=== PATIENT | female | born 1930 | race Caucasian/White ===

== ENCOUNTER 2020-03-02 14:34 | Emergency (ER) | payer MEDICARE, MEDICAID ==
[~2020-03-02] VITALS: Ht 162.6 cm; Wt 100.0 kg
[2020-03-02 15:37] LABS: CHLORIDE 100 mEq/L (98-107)
[2020-03-02 15:39] LABS: HEMATOCRIT. 37.9 % (36.0-48.0); HEMOGLOBIN. 12.4 g/dL (12.0-16.0); MEAN CORPUSCULAR HEMOGLOBIN 29.2 pg (28.0-32.0); MEAN CORPUSCULAR VOLUME 89.4 fL (81.0-99.0); MEAN PLATELET VOLUME 9.5 fl (7.4-10.4); PLATELET 166 x1000/uL (130-400); RED BLOOD CELL COUNT 4.24 mill/uL (4.2-5.4); RED CELL DISTRIBUTION WIDTH 14.8 % (11.6-14.6)
[2020-03-02] MEDS ORDERED: PIPERACILLIN/TAZOBACTAM 3.375GM/50ML PREMIX IV ONE (16:00)
[2020-03-02] MEDS ORDERED: FUROSEMIDE 100MG/10ML VIAL IV NR (16:04)
[2020-03-02] MEDS ORDERED: CALCIUM GLUCONATE 100MG/ML 10ML VIAL IV NR (16:15)
[2020-03-02] MEDS ORDERED: INSULIN REGULAR (DRIP) 100 UNITS in SODIUM CHLORIDE 0.9% 99 ML IV NR (16:15)
[2020-03-02] MEDS ORDERED: PIPERACILLIN/TAZ 3.375G PREMIX 50 ML IV NR (16:15)
[2020-03-02 16:19] LABS: PLATELET ESTIMATE NORMAL
[2020-03-02 16:32] LABS: BG BASE EXCESS -8.4 mmol/L (-2.0-2.0); BG DEOXYHEMOGLOBIN 13.5 % (0.0-5.0); BG HCO3 ACT 15.7 mmol/L (22.0-26.0); BG METHEMOGLOBIN 0.1 % (0.0-1.5); BG OXYGEN SATURATION 86.5 % (92.0-98.5); BG OXYHEMOGLOBIN 86.4 % (94.0-97.0); BG PCO2 28.8 mmHg (35.0-45.0); BG PH 7.355 (7.350-7.450); BG SAMPLE SITE RIGHT BRACHIAL; BG TOTAL HEMOGLOBIN 12.8 g/dL (12.0-18.0); BG VENT MODE NASAL CANNULA
[2020-03-02] MEDS ORDERED: SODIUM CHLORIDE 0.9% 1,000 ML IV SCH (18:34)
[2020-03-02] MEDS ORDERED: ONDANSETRON HCL 4MG/2ML INJ IV PRN (18:45)
[2020-03-02] MEDS ORDERED: DIPHENHYDRAMINE 50MG/ML VIAL IV PRN (18:45)
[2020-03-02] MEDS ORDERED: ACETAMINOPHEN 325MG TABLET PO PRN (18:45)
[2020-03-02] MEDS ORDERED: CLONIDINE 0.1MG TABLET PO PRN (18:45)
[2020-03-02] MEDS ORDERED: IPRATROPIUM/ALBUTEROL 0.5-3(2.5)MG/3ML NEB HHN PRN (18:45)
[2020-03-02 19:31] LABS: PHOSPHORUS 5.5 mg/dL (2.5-4.9)
[2020-03-02] MEDS ORDERED: ENOXAPARIN 40MG/0.4ML SYR SUBCUT SCH (20:00)
[2020-03-03 04:15] LABS: HEMATOCRIT. 37.3 % (36.0-48.0); HEMOGLOBIN. 12.3 g/dL (12.0-16.0); MEAN CORPUSCULAR HEMOGLOBIN 28.9 pg (28.0-32.0); MEAN CORPUSCULAR VOLUME 87.9 fL (81.0-99.0); MEAN PLATELET VOLUME 9.2 fl (7.4-10.4); PLATELET 107 x1000/uL (130-400); RED BLOOD CELL COUNT 4.25 mill/uL (4.2-5.4); RED CELL DISTRIBUTION WIDTH 14.6 % (11.6-14.6)
[2020-03-03] MEDS ORDERED: INSULIN REGULAR (DRIP) 100 UNITS in SODIUM CHLORIDE 0.9% 100 ML IV SCH (05:29)
[2020-03-03] MEDS ORDERED: DEXT 5%/0.9% NACL 1,000 ML IV SCH (05:30)
[2020-03-03] MEDS ORDERED: DEXTROSE 50% WATER 50ML SYRINGE IV PRN ×2 (05:30)
[2020-03-03 05:35] VITALS: BP 90/61
[2020-03-03 05:35] LABS: PLATELET ESTIMATE DECREASED
[2020-03-03] MEDS ORDERED: BLOOD SUGAR DIAGNOSTIC STRIP TEST SCH (06:00)
[2020-03-03] MEDS ORDERED: EPINEPHRINE 0.1MG/ML (1:10,000) 10ML SYR ONE (06:38)
[2020-03-03] MEDS ORDERED: DOPAMINE 400MG/250ML PREMIX 250 ML IV ONE ×2 (06:45→06:49)
== END 2020-03-03 06:49 | disposition expired ==
LOC: ER 14:34 → EDBEDREQSVC 17:24 → EDBEDREQ 17:24 → ER 03-03 06:49 → CANBEDREQ 03-03 07:12
DX: I11.0 Hypertensive heart disease with heart failure (principal); I50.9 Heart failure, unspecified; E11.65 Type 2 diabetes mellitus with hyperglycemia; E87.2 Acidosis
CPT/HCPCS: 31500; 36415; 36556; 36600; 71045; 78580; 80048; 80053; 80061; 82375; 82805; 82962; 83605; 83735; 83880; 84100; 84443; 84484; 85025; 92950; 93005; 93970; 96365; 96375; 99285; A9540; J0610; J1265; J1815; J1940; J2543; J3490; J7050